=== PATIENT | male | born 1975 | race Caucasian/White ===

== ENCOUNTER 2019-10-03 08:17 | Day surgery (SDC) | payer OTHER ==
[~2019-10-03] VITALS: Ht 182.9 cm; Wt 88.9 kg
[~2019-10-03 08:17] MED LIST: FENTANYL PF 250 MCG/5ML ONE; MIDAZOLAM 1 MG/ML, 2ML ONE
[2019-10-03] MEDS ORDERED: none per pt (08:57)
[2019-10-03 09:07] VITALS: BP 124/88
[2019-10-03] MEDS ORDERED: LACTATED RINGERS 1,000 ML IV SCH (09:10)
[2019-10-03] MEDS ORDERED: SODIUM CHLORIDE 0.9% 50 ML ONE (09:17)
[2019-10-03] MEDS ORDERED: EPINEPHRINE 1 MG/ML, 1ML ONE (09:17)
[2019-10-03] MEDS ORDERED: ROPIvacaine/PF 0.2%, 20 ML ONE (09:17)
[2019-10-03] MEDS ORDERED: TRANEXAMIC ACID 100 MG/ML, 10ML ONE (09:17)
[2019-10-03] MEDS ORDERED: KETOROLAC 60 MG/2 ML ONE (09:17)
[2019-10-03] MEDS ORDERED: ALBUTEROL/IPRATROPIUM 2.5MG/0.5MG, 3 ML NPPB PRN (09:30)
[2019-10-03] MEDS ORDERED: hydrALAzine 20 MG/ML, 1ML IV PRN (09:30)
[2019-10-03] MEDS ORDERED: HYDROmorphone 2 MG/ML, 1ML IVPush PRN (09:30)
[2019-10-03] MEDS ORDERED: MIDAZOLAM 1 MG/ML, 2ML IV PRN (09:30)
[2019-10-03] MEDS ORDERED: GABAPENTIN 300 MG CAPSULE PO ONE (09:30)
[2019-10-03] MEDS ORDERED: PROMETHAZINE 25 MG/ML, 1ML IV PRN (09:30)
[2019-10-03] MEDS ORDERED: OXYcodone 5 MG/5 ML ORAL.SOL UDC PO PRN (09:30)
[2019-10-03] MEDS ORDERED: ACETAMINOPHEN 500 MG TABLET PO ONE (09:30)
[2019-10-03] MEDS ORDERED: METOPROLOL 1 MG/ML, 5ML IV PRN (09:30)
[2019-10-03] MEDS ORDERED: CEFAZOLIN 1,000 MG ONE (10:39)
[2019-10-03] MEDS ORDERED: BUPIVACAINE/PF 0.25% ONE (10:39)
[2019-10-03] MEDS ORDERED: ONDANSETRON 2MG/ML, 2ML ONE (10:39)
[2019-10-03] MEDS ORDERED: PROPOFOL 10 MG/ML, 20ML ONE (10:39)
[2019-10-03] MEDS ORDERED: DEXAMETHASONE 4 MG/ML, 1ML ONE (10:39)
[2019-10-03] MEDS ORDERED: MEPERIDINE/PF 25MG/ML,1ML ONE (11:36)
[2019-10-03] MEDS: MEPERIDINE/PF 25MG/ML,1ML IVPush PRN ×2 (11:40→14:18)
[2019-10-03] MEDS: FENTANYL PF 100 MCG/2ML IV PRN ×2 (12:00→12:20)
[2019-10-03] MEDS ORDERED: POLYETHYLENE GLYCOL 17 GM PACKET PO PRN (12:00)
[2019-10-03] MEDS ORDERED: PROMETHAZINE 25 MG/ML, 1ML IM PRN (12:00)
[2019-10-03] MEDS ORDERED: TRANEXAMIC ACID 1,000 MG in SODIUM CHLORIDE 0.9% 100 ML IVPB ONE (12:00)
[2019-10-03] MEDS ORDERED: MAGNESIUM HYDROXIDE 8%, 30ML UDC PO PRN (12:00)
[2019-10-03] MEDS ORDERED: HYDROmorphone 1 MG/ML, 1ML INJ IVPush PRN (12:00)
[2019-10-03] MEDS ORDERED: ONDANSETRON 4 MG TABLET PO PRN (12:00)
[2019-10-03] MEDS ORDERED: METOCLOPRAMIDE 5 MG/ML, 2ML IVPush PRN (12:00)
[2019-10-03] MEDS ORDERED: DIPHENHYDRAMINE 50 MG CAPSULE PO PRN (12:00)
[2019-10-03] MEDS ORDERED: PSYLLIUM PACKET PO PRN (12:00)
[2019-10-03] MEDS ORDERED: BISACODYL 10 MG SUPP PR PRN (12:00)
[2019-10-03] MEDS ORDERED: DIPHENHYDRAMINE 50 MG/ML, 1ML IVPush PRN (12:00)
[2019-10-03] MEDS ORDERED: SENNA/DOCUSATE TABLET PO PRN (12:00)
[2019-10-03] MEDS ORDERED: ONDANSETRON 2MG/ML, 2ML IVPush PRN (12:00)
[2019-10-03] MEDS ORDERED: OXYcodone IR 5MG TABLET PO PRN (12:00)
[2019-10-03] MEDS ORDERED: ACETAMINOPHEN 650 MG/20.3 ML UDC PO PRN (12:00)
[2019-10-03] MEDS ORDERED: FENTANYL PF 100 MCG/2ML ONE (12:04)
[2019-10-03] MEDS ORDERED: OXYcodone 5 MG/5 ML ORAL.SOL UDC ONE (12:04)
[2019-10-03] MEDS ORDERED: hydrALAzine 20 MG/ML, 1ML ONE (12:14)
[2019-10-03 13:15] VITALS: BP 124/89
[2019-10-03] MEDS ORDERED: D5%-0.45NACL+KCL 20MEQ 1,000 ML IV SCH (13:30)
[2019-10-03 13:35] VITALS: BP 124/89
[2019-10-03] MEDS ORDERED: CEFAZOLIN PMX 1GM/50ML 50 ML IVPB SCH (14:00)
[2019-10-03] MEDS ORDERED: KETOROLAC 30 MG/1 ML IV SCH (14:00)
[2019-10-03] MEDS: TAMSULOSIN 0.4 MG CAP.ER.24H PO SCH ×2 (15:00→16:53)
[2019-10-03] MEDS ORDERED: ASPI81TA45 PO (15:20)
[2019-10-03] MEDS ORDERED: OXYC5CAP2 PO (15:20)
[2019-10-03] MEDS ORDERED: DOCUSATE 100 MG CAPSULE PO SCH (21:00)
[2019-10-03] MEDS ORDERED: ASPIRIN 81 MG TABLET EC PO SCH (21:00)
[2019-10-04] MEDS ORDERED: DEXAMETHASONE 4 MG/ML, 1ML IVPush ONE (06:00)
== END 2019-10-03 18:10 | disposition home or self-care (01) ==
LOC: OUT 08:17 → 4NE 13:15 → OUT 18:10
PROVIDERS: ATTEND Orthopaedic Surgery
DX: M17.31 Unilateral post-traumatic osteoarthritis, right knee (principal); M25.761 Osteophyte, right knee; M71.21 Synovial cyst of popliteal space [Baker], right knee; M21.061 Valgus deformity, not elsewhere classified, right knee; Z79.1 Long term (current) use of non-steroidal anti-inflammatories (NSAID); Z98.890 Other specified postprocedural states
CPT/HCPCS: 27447; 64447; 73560; 97162; C1713; C1776; J0171; J0360; J0690; J1100; J1170; J1885; J2175; J2250; J2405; J2704; J2795; J3010; J3480; J3490; J7120; G0378